=== PATIENT | male | born 1995 | race Two or more races ===

== ENCOUNTER 2024-11-07 11:01 | Emergency (ER) | payer SELFPAY ==
[~2024-11-07] VITALS: Ht 180.3 cm; Wt 79.0 kg
[2024-11-07 11:07] VITALS: O2SAT 100
[2024-11-07] MEDS ORDERED: SUCR1TAB MT (11:12)
[2024-11-07] MEDS ORDERED: AZIT250T12 MT (11:12)
[2024-11-07 11:18] VITALS: BP 155/95; PULSE 84; RESP 16; TEMP 37; O2SAT 100
== END 2024-11-07 11:20 | disposition home or self-care (01) ==
LOC: ER 11:01
DX: R19.7 Diarrhea, unspecified (principal)
CPT/HCPCS: 99283